=== PATIENT | female | born 1995 | race Caucasian/White ===

== ENCOUNTER 2023-07-18 00:38 | Day surgery (SDC) | payer OTHER, SELFPAY ==
[2023-07-10 10:23] VITALS: BMI 24.4
--- NOTE | 2023-07-10 10:26 | PC.NURSE ---
Report to the Outpatient Waiting Room, entrance under the green pavilion located off [facility], at time 1000 on date 07/18/23. Planned Procedure Time: 1200. Time changes happen often and if your time is changed the preop area will call you the afternoon before. - You and your visitor will be asked to self-screen and do not enter if you have any COVID symptoms. - A mask is optional within the hospital at this time. Patients may have clear liquids (water, carbonated beverages, clear teas, apple juice) until 3 hours prior to surgery with a maximum of 20 ounces. - No food from midnight until time of surgery Take the following medications with a SIP of water the morning of surgery: CYCLOBENZAPRINE IF NEEDED DO NOT STOP ANY OF YOUR OTHER PRESCRIPTION MEDICATIONS PRIOR TO SURGERY ?EXCEPT THE FOLLOWING Medications to discontinue per physician: N/A Date to take last dose: N/A Please no make-up, nail romansh, hairspray, perfume, deodorant, or body powder the day of surgery. No jewelry (including any body piercings) or valuables the day of surgery, leave them at home. Please take a shower or bath the night before, or the morning of, surgery with an antibacterial soap. Wear comfortable, loose fitting clothing. - Jewelry must be removed prior to entering the operating room. Rings and piercings that are not removed may be cut off. - The hospital will not accept responsibility for valuables. - Please leave all valuables, including medications, at home the day of surgery. If you are going home after surgery, a licensed commercial driver's license driver must drive you home. - NO public transportation without another adult if you receive anesthesia. - We recommend that an adult stay with you for 24 hours following discharge. - We also recommend that you do not drive, make important decision, drink alcoholic beverages, or take any drugs that were not prescribed by your health care provider for at least 24 hours after your discharge time. Follow any additional instructions given to you from your surgeon. If you or anyone in your household have experienced Covid symptoms in the past week, please notify your surgeon or the nurse liaison at the phone number below for possible testing. Telephone instructions given to PT - KUSH LOPES and asked if any additional questions and then verbalized understanding. Patient advised to call surgeon office or pre surgery nurse liaison [phone] if any additional questions.
[2023-07-18] VITALS (8 sets, daily range): BP systolic 123–136; BP diastolic 68–89; PULSE 68–110; RESP 16–18; TEMP 36.3–36.8; O2SAT 100
--- NOTE | 2023-07-18 08:10 | WPDHPUPDATE1 ---
History and Physical Update Update Date/Time: 07/18/23 08:10 History and Physical has been reviewed, including an updated exam of the patient. There are NO changes in the patient's condition. Risks, benefits, and alternatives have been discussed and questions answered. Patient agrees to proceed with procedure.
--- NOTE | 2023-07-18 09:09 | P.PNAN_ITS ---
Anes - Initial Pre Proc Eval Procedure: Operation Date: 07/18/23 09:45 Proposed Procedures p Excision Simple Pilonidal Cyst - Kai Sagastume DO Date/Time: 07/18/23 09:09 Surgeon: Kai Sagastume DO Pre Op Diagnosis: Pilonidal Cyst Patient Data Age: 28 Gender: F Height: 1.52 m Weight: 60.3 kg Last Vital Signs Temp 36.8 C 07/18/23 08:17 Pulse 87 07/18/23 08:17 Resp 16 07/18/23 08:17 BP 129/77 07/18/23 08:17 Pulse Ox 100 07/18/23 08:17 O2 Del Method Room Air 07/18/23 08:17 Allergies Allergy/AdvReac Type Severity Reaction Status Date / Time No Known Allergies Allergy Unverified 07/18/23 08:06 Home Medications Medication Instructions Recorded Confirmed Type cyclobenzaprine 5 mg tablet 5 mg PO TID PRN Muscle Spasm 06/22/23 07/10/23 History norelgestromin 150 mcg-e.estradiol 1 patch transdermal Q7D 06/22/23 07/10/23 History 35 mcg/24 hr weekly transderm patch (Xulane) Patient hx anesthesia problems: post op nausea/vomiting Family hx anesthesia problems: none Results Review: All pre-operative results and documents have been reviewed as part of the pre- operative evaluation. [facility] Surgical History Surgical History History of myringoplasty [place] teeth extracted Family History Family History Other Cancer Hypertension Social History Social History Smoking status: Never smoker Alcohol intake: current Drinks per week: 6 Alcohol use details: socially Substance use: never Substance use type: does not use Living arrangements: with family Occupation/Education: occupation Spiritual care concerns: No Anes - Eval Final PreProcedure Day of Procedure 07/18/23 09:09 Patient weight: normal Heart: regular rate and rhythm Lungs: clear to auscultation Airway: Mallampati scale class 1 Neurological: alert and oriented Last oral intake: >/= 8 hours ASA classification: I Emergent: no Anesthetic plan: proceed Anesthesia type and monitoring: general GIVS and standard monitoring Results Review: All pre-operative results and documents have been reviewed as part of the pre- operative evaluation. Informed Consent: The patient's anesthetic plan and its attendant risks and benefits were discussed with the patient/family/POA. Questions were solicited and answers provided to the satisfaction of the patient/family/POA.
[2023-07-18] MEDS: LACTATED RINGERS 1,000 ML 30 ML IV CONT ×2 (09:24→10:20)
[2023-07-18] MEDS: ceFAZolin 2 GM/D5W 50 ML 2 GM/50 ML BAG IVPB (09:27)
[2023-07-18] MEDS: BUPIVACAINE/EPINEPHRINE 0.5% 50 ML VIAL 30 ML INFILTRATE (09:52)
--- NOTE | 2023-07-18 10:10 | W.PM.PROC2 ---
Procedure Note - Detailed Date of Procedure 07/18/23 Pre-op Diagnosis Pilonidal Cyst Post-op Diagnosis Same Procedure Performed Excision of complicated pilonidal cyst Surgeon Kai Sagastume, DO Anesthesia General and Local ( 0.5% bupivacaine with epinephrine) Indications This is a 28-year-old woman who presented with a chronic wound on her presacral region. She was found to have a pilonidal cyst on exam. There was no evidence of abscess but the pilonidal cyst had a chronic draining tract. Discussions were made with the patient about treatment options and decision was made to proceed with excision of pilonidal cyst. Findings Patient was found to have 1 small sinus tract in the midline intergluteal cleft that tracked underneath the skin about 4 cm cephalad to an open wound on the surface of the skin in the midline. The sinus tract was probed with a lacrimal probe to identify the tract and then a wide enough incision was made around this area to excise the complete pilonidal cyst. The pilonidal cyst was completely excised and sent to the lab for pathology. No other significant abnormalities were seen. Description of Procedure Procedure as well as risks, benefits, and alternatives were discussed with the patient. Written consent was obtained and placed in chart prior to procedure. Patient was brought back to surgical suite. She was placed supine on operating table. Time-out was done to confirm patient and procedure. She was then intubated by the Anesthesia Department. She was then repositioned to prone oscar-knife position on the operating table. Her sacral region was prepped and draped in sterile fashion using Betadine prep. 0.5% bupivacaine with epinephrine was infiltrated locally around the pilonidal cyst. Lacrimal probes were used to identify the sinus tracts and probed for the directions that they were tracking. An elliptical incision was then made using a 10 blade scalpel to encompass the entire area. Electrocautery was used for hemostasis and for dissection down deep to the cyst cavity. Careful dissection was made around the entire cyst to excise it completely intact. The cyst was completely removed and sent to the lab for pathology. The wound bed was then inspected. Hemostasis was achieved with electrocautery. A 0.5% bupivacaine with epinephrine was infiltrated deep in the cavity. The wound bed was then irrigated with sterile saline. No other abnormalities were noted. The deep tissue was then reapproximated using 0 Vicryl simple interrupted sutures. The skin edges were then reapproximated using 3-0 nylon vertical mattress interrupted sutures placed approximately 1 cm apart. Fluff gauze, ABD pad, and Medipore tape were then applied. The patient was then awakened from anesthesia, extubated, and transferred to recovery. Estimated Blood Loss 10 Packing No Pathology Yes ( pilonidal cyst) Complications No immediate complications Condition Stable Disposition Same day [facility] Billing Surgery - Charge Forward: Surgery Billing
--- NOTE | 2023-07-18 10:42 | SUR.PHASEI ---
1041: Simple mask removed.
== END 2023-07-18 11:50 | disposition home or self-care (01) ==
PROVIDERS: Visit Provider Surgery
PROC: (CPT 11772; principal; 2023-07-18 09:45)
DX: L05.91 Pilonidal cyst without abscess (principal)
CPT/HCPCS: 11772; 88305; J0330; J0690; J1100; J2250; J2405; J2704; J3010; J7120